=== PATIENT | female | born 1980 | race Caucasian/White ===

== ENCOUNTER 2024-05-22 17:51 | Emergency (ER) | payer BC, SELFPAY ==
--- NOTE | 2024-05-22 19:55 | ED_ITS ---
Discharge Plan Disposition Patient Disposition: Home, Self-Care Condition: Good Prescriptions Prescriptions: New ibuprofen [IBU] 800 mg tablet 800 mg PO Q8HP PRN (Reason: Moderate Pain) Qty: 30 0RF amoxicillin-pot clavulanate 875-125 mg Tablet 1 tab PO Q12H Qty: 20 0RF Referrals Follow up/Referrals: Yvon Esposito [Primary Care Provider] - See instructions Activity Restrictions/Add. Instructions Additional Instructions/Restrictions: Drink plenty of fluids. Take tylenol or ibuprofen for pain or fever. Take the medications as directed. Follow up with your regular doctor. GO TO THE ER FOR ANY WORSENING SYMPTOMS You have to follow up with a dentist. Clinical Impressions Clinical Impression: Dental abscess, Pain, dental Instructions Patient Instructions: Tooth Abscess, DI for Tooth Abscess, Ceftriaxone Injection Print Language Print Language: Japanese Discharge ED Provider: Eyad Prado [facility] General Stated complaint: dental pain Time Seen by Provider: 05/22/24 19:55 Related Data Previous Rx's ?Medication ?Instructions ?Recorded amoxicillin 875 mg-potassium 1 tab PO Q12H #20 tabs 05/22/24 clavulanate 125 mg tablet ibuprofen 800 mg tablet (IBU) 800 mg PO Q8HP PRN Moderate Pain 05/22/24 #30 tabs Allergies Allergy/AdvReac Type Severity Reaction Status Date / Time No Known Allergies Allergy Verified 05/22/24 20:19 [facility] Disclaimer: The information contained in this section may have been updated after the patient was seen, as this information can be updated by other users. Social History Smoking Status: Never smoker alcohol intake: never current occupational status: employed Travel in the last 8 weeks: None ROS Obtained: Yes All systems reviewed & no additional complaints except as documented Constitutional Constitutional: Denies chills and Denies fever(s) Eyes Eyes: Denies eye discharge ENT Ears, Nose, Mouth, and Throat: Denies dizziness, Denies otalgia and Denies sore throat Cardiovascular Cardiovascular: Denies chest pain Respiratory Respiratory: Denies shortness of breath, Denies chest congestion, Denies cough, Denies stridor and Denies wheezing Gastrointestinal Gastrointestingal: Denies nausea or vomiting Musculoskeletal Musculoskeletal: Reports system reviewed and no additional complaints, except as documented and Denies arthralgias Integumentary/Breasts Skin/Breast: Denies rash Neurologic Neurologic: Denies dizziness and Denies paresthesias Allergic/Immunologic Allergic/Immunologic: Denies wheezing Physical Exam General General appearance: alert and in no apparent distress Head Head exam: atraumatic, normocephalic and normal inspection Eye Eye exam: Present normal appearance, PERRL and EOMI ENT ENT exam: Present normal exam, normal oropharynx, mucous membranes moist, TM's normal bilaterally and normal external ear exam Neck Neck exam: Present normal inspection, full ROM and trachea midline; Absent meningismus or lymphadenopathy Chest Chest inspection: Present normal inspection and symmetric chest wall rise; Absent tenderness Respiratory Respiratory exam: Present normal lung sounds bilaterally; Absent respiratory distress Cardiovascular Cardiovascular exam: Present regular rate and normal rhythm; Absent JVD Abdominal Exam Abdominal exam: Present soft and normal bowel sounds; Absent distention, tenderness or guarding Extremities Exam Extremities exam: Present normal inspection, full ROM and normal capillary refill; Absent calf tenderness Back Exam Back exam: Present normal inspection; Absent tenderness Neurological Exam Neurological exam: Present alert and oriented X3 Psychiatric Psychiatric exam: Present normal affect and normal mood Skin Skin exam: Present warm, dry, intact and normal color Lymphatic Lymphatic Findings: no adenopathy Medical Decision Making Medical Records Medical records reviewed: No I reviewed the patient's medical records. Screening: Per USPSTF and CDC recommendations, given the prevalence of disease in our region, it is our hospital?s policy to screen for HIV and viral Hepatitis for all patients aged 18 and over and those with ongoing risk factors. Dong Inquiry Pt receiving controlled substance: No Lab Data Lab results reviewed: Yes I reviewed the patient's lab results.
[2024-05-22 20:07] VITALS: BP 144/72; PULSE 72; RESP 16; TEMP 36.7; O2SAT 100; BMI 35.4
[2024-05-22] MEDS: cefTRIAXone 1GM VIAL 1 GM IM (20:19)
[2024-05-22] MEDS: LIDOCAINE 1% 5ML PF VIAL IM (20:19)
[2024-05-22 20:41] VITALS: BP 144/72; PULSE 72; RESP 16; TEMP 36.7; O2SAT 100
== END 2024-05-22 20:42 | disposition home or self-care (01) ==
PROVIDERS: Emergency Provider Nurse Practitioner Family; PCP Family Medicine
DX: K04.7 Periapical abscess without sinus (principal)
CPT/HCPCS: 99212; G0381; J0696

== ENCOUNTER 2024-07-15 21:12 | Emergency (ER) | payer BC, SELFPAY ==
[2024-07-15 21:20] VITALS: BP 133/70; PULSE 69; RESP 14; O2SAT 98; BMI 35.2
--- NOTE | 2024-07-15 21:36 | PC.NURSE ---
Pt awake alert and oriented Skin pink warm and dry Resp full and easy Speech clear and appropriate
--- NOTE | 2024-07-15 21:42 | ED_ITS ---
<Statement entered by Mak Miner MD - 07/15/24 23:13> I was consulted by the REGINA, and we discussed the complexity of the problems being addressed. I approved the treatment and management plan for this patient's care in the emergency department, thus performing a substantive portion of the medical decision making. Mak Miner MD Discharge Plan Disposition Patient Disposition: Home, Self-Care Prescriptions Prescriptions: New clindamycin HCl 300 mg capsule 300 mg PO BID 7 Days Qty: 14 0RF ibuprofen 600 mg tablet 600 mg PO TID PRN (Reason: pain) Qty: 7 0RF No Action ibuprofen [IBU] 800 mg tablet 800 mg PO Q8HP PRN (Reason: Moderate Pain) Qty: 30 0RF amoxicillin-pot clavulanate 875-125 mg Tablet 1 tab PO Q12H Qty: 20 0RF Referrals Follow up/Referrals: Yvon Esposito [Primary Care Provider] - See instructions Activity Restrictions/Add. Instructions Additional Instructions/Restrictions: Today you were evaluated in the emergency department for dental pain. Please take the antibiotics and use ibuprofen as directed. Please follow-up with dentistry. Return to the ED for worsening of condition. Clinical Impressions Clinical Impression: Pain, dental Instructions Patient Instructions: DI for Dental Pain Print Language Print Language: Niuean Discharge ED Provider: Mak Miner General Adult HPI General Chief complaint: Dental/Oral Stated complaint: tooth ache infection in gums Time Seen by Provider: 07/15/24 21:41 Mode of Arrival: Ambulatory Source of Information: Patient Description of Symptoms (Recalled from ER Triage Doc. by RN): patient states she has had an infection in her teeth that began on right upper molars and now she has pain in her left upper teeth for 2 weeks and and wants antibiotics she states her dentist wont do anything and she just wants to treat the infection. 5/10 pain she reports taking tylenol and ibuprofen. History of Present Illness HPI narrative: patient is a 43-year-old female no significant PMH who presents to the ED for complaints of right-sided dental pain. Patient states that she has gum swelling and gum tenderness that started 3 days ago. Patient has a history of poor dental health and poor dental hygiene. Related Data Previous Rx's ?Medication ?Instructions ?Recorded amoxicillin 875 mg-potassium 1 tab PO Q12H #20 tabs 05/22/24 clavulanate 125 mg tablet ibuprofen 800 mg tablet (IBU) 800 mg PO Q8HP PRN Moderate Pain 05/22/24 #30 tabs clindamycin HCl 300 mg capsule 300 mg PO BID 7 days #14 caps 07/15/24 ibuprofen 600 mg tablet 600 mg PO TID PRN pain #7 tabs 07/15/24 Allergies Allergy/AdvReac Type Severity Reaction Status Date / Time No Known Allergies Allergy Verified 05/22/24 20:19 [facility] Disclaimer: The information contained in this section may have been updated after the patient was seen, as this information can be updated by other users. Social History (Updated 05/24/24 @ 16:08 by Eyad Prado APRN) Smoking Status: Current every day smoker alcohol intake: never current occupational status: employed Travel in the last 8 weeks: None Have you lived/traveled outside [place] in past 30 days?: No Contact w/someone who lives/traveled outside [place] past 30 days?: No Exposure to someone with infectious disease in past 14 days?: No Do you have a fever (greater than 100.4 F or 38 C)?: No Have you tested positive for COVID-19: No Exposed to someone with COVID-19 in past 14 days?: No Do you have a sore throat?: No Do you have a cough?: No Do you have any weakness?: No Do you have any diarrhea?: No Are you experiencing any unusual bleeding?: No Do you have any muscle aches/pain?: No Do you have any abdominal pain?: No Are you experiencing loss of taste or smell?: No ROS Obtained: Yes Systems reviewed as appropriate & no additional complaints except as documented Physical Exam General General appearance: alert and in no apparent distress Head Head exam: atraumatic and normocephalic Eye Eye exam: Present normal appearance and PERRL ENT ENT exam: Present normal exam and other (Poor dental hygiene, right lower gumline tenderness) Neck Neck exam: Present normal inspection Chest Chest inspection: Present normal inspection and symmetric chest wall rise; Absent tenderness Respiratory Respiratory exam: Present normal lung sounds bilaterally Cardiovascular Cardiovascular exam: Present regular rate Abdominal Exam Abdominal exam: Present soft and normal bowel sounds; Absent tenderness Extremities Exam Extremities exam: Present normal inspection and full ROM Back Exam Back exam: Present normal inspection and full ROM Neurological Exam Neurological exam: Present alert and oriented X3 Psychiatric Psychiatric exam: Present normal affect and normal mood Skin Skin exam: Present warm and dry Medical Decision Making Medical Records Screening: Per USPSTF and CDC recommendations, given the prevalence of disease in our region, it is our hospital?s policy to screen for HIV and viral Hepatitis for all patients aged 18 and over and those with ongoing risk factors. Dong Inquiry Pt receiving controlled substance: No Dong was queried for this patient: No Vital Signs: 07/15/24 21:20 Pulse Rate [Right] 69 Respiratory Rate 14 Blood Pressure [Right Arm] 133/70 Blood Pressure Mean [Right Arm] 91 Blood Pressure Source [Right Arm] Automatic Cuff Blood Pressure Position [Right Arm] Sitting 02 Sat by Pulse Oximetry 98 Oxygen Delivery Method Room Air Orders (Tests/Meds): ORDERS Category Date Time Status HIV Combo Routine Lab 07/15/24 21:38 Ordered Hepatitis C Ab Qual. W/ RFX Routine Lab 07/15/24 21:38 Ordered Medical Decision Narrative: In summary, patient is a 43-year-old female no significant PMH who presents to the ED for complaints of right-sided dental pain. Patient states that she has gum swelling and gum tenderness that started 3 days ago. Patient has a history of poor dental health and poor dental hygiene. Patient admits that she does not see a dentist as she has anxiety about going to the dentist office. She has not been on any recent antibiotics. She has had to have antibiotics for dental infections in the past. Denies fever, chills, body aches, headache, sore throat, difficulty swallowing, chest pain, shortness of breath, abdominal pain. Upon initial evaluation patient is alert, oriented and cooperative. She is hemodynamically stable. Physical exam remarkable for poor dental hygiene, gum tenderness around right molar area. Airway is patent. Discussed with patient that we can treat with clindamycin due to penicillin allergy and will send a prescription for ibuprofen to the pharmacy. Advised her she may also take [id number] acetaminophen as well. Patient declined tooth balls. Advised her that she will need to follow-up with dentistry. We discussed return precautions to the ED. Critical Care Critical Care Time Critical Care Time: No
[2024-07-15] MEDS: IBUPROFEN 600 MG TABLET PO (21:50)
[2024-07-15 21:51] VITALS: BP 130/70; PULSE 68; RESP 16; TEMP 36.8; O2SAT 98
[2024-07-15] MEDS: CLINDAMYCIN 150MG CAPSULE 300 MG PO (21:51)
== END 2024-07-15 21:52 | disposition home or self-care (01) ==
PROVIDERS: Emergency Provider Emergency Medicine; PCP Family Medicine
DX: K08.89 Other specified disorders of teeth and supporting structures (principal)
CPT/HCPCS: 99283

== ENCOUNTER 2025-02-11 19:07 | Emergency (ER) | payer BC, SELFPAY ==
[2025-02-11 19:28] VITALS: BP 124/71; PULSE 63; RESP 20; TEMP 36.7; O2SAT 98; BMI 38.6
--- NOTE | 2025-02-11 19:33 | PC.NURSE ---
Pt awake alert and oriented No obvious deformity in right wrist Radial pulses strong and equal Skin pink warm and dry Resp full and easy Speech clear and appropriate
--- OUTSIDE RECORDS SUMMARY | 2025-02-11 19:36 | XMS_ITS | Continuity of Care Document ---
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 [facility] Total Protein 7.9 6.4 - 8.3 gm/dL 10/12/2023 11:30 PM EDT [facility] Bili Total 0.3 0.2 - 1.3 mg/dL 10/12/2023 11:30 PM EDT [facility] ALT 9 <=41 U/L 10/12/2023 11:30 PM EDT [facility] AST 16 <=40 U/L 10/12/2023 11:30 PM EDT [facility] Alk Phos 100 36 - 123 U/L 10/12/2023 11:30 PM T [facility] eGFR (CKD-EPIcr 2020) 64 >=60 mL/min/1.7 3 m2 10/12/2023 11:30 PM T [facility] Comment:Estimated GFR was ca lculated using the CKD-EPIcr (2020) equation refit without race. The equation is recommended by the National Kidney Foundation - [place] [employer] of Nephrology Task Force. Blood VENOUS BLOOD / Unknown Venipuncture / Unknown 10/12/2023 11:14 PM EDT 10/12/2023 11:17 PM EDT us Margarito Howe MD CHEMISTRY ORDERABLES Final R esult [facility] [address] [place] [address] * EK EKG 12 LEAD (10/12/2023 11:05 PM EDT) Only the most recent of2 resultswithin the time period is included. Anatomical Region Laterality Modality Electrocardiogra phy 10/12/2023 11:0 8 PM EDT Impressions 10/14/2023 8:07 AM EDT [facility] Test Date: 2023-10-12 Pat Name: RACHANA YOUNG Department: DEPID Room: 11 Gender: Female Medical Interpreter: Ruddy : 1980 Requested By: [facility] Order Number: [id number] Reading MD: Avinash Sandhu Measurements Intervals [place] Rate: 84 P: 0 OR: 190 QRS: 58 QRSD: 90 T: 18 QT: 374 QTc: 443 Interpretive Statements POOR DATA QUALITY MAY AFFECT INTERPRETATION NORMAL SINUS RHYTHM Electronically Signed On 10-14-2023 08:07:45 EDT by Avinash Sandhu Narrative Procedure Note Avinash Sandhu MD - 10/14/2023 IMPRESSION [facility] Test Date: 2023-10-12 Pat Name: RACHANA YOUNG Department: DEPID Room: 11 Gender: Female Medical Interpreter: Ruddy : 1980 Requested By: [facility] Order Number: [id number] Reading : Avinash Snadhu Measurements Intervals [place] Rate: 84 P: 0 OR: 190 QRS: 58 QRSD: 90 T: 18 QT: 374 QTc: 443 Interpretive Statements POOR DATA QUALITY MAY AFFECT INTERPRETATION NORMAL SINUS RHYTHM Electronically Signed On 10-14-2023 08:07:45 EDT by Avinash Sandhu Margarito Howe MD IMG ECG ORDERABLES Final Res ult * HUMAN CHORIONIC GONADOTROPIN QUANTITATIVE (07/05/2023 11:46 AM EDT) Only the most recent of9 resultswithin the time period is included. Hcg Quant <1 <5 mIU/mL 07/05/2023 3:[address] [facility] Blood VENOUS BLOOD / Unknown Venipuncture / Unknown 07/05/2023 11:46 AM EDT 07/05/2023 11:46 AM EDT Narrative [facility], - 07/05/2023 3:23 PM EDT Ingestion of jayda doses of biotin (>5 mg/day) taken within 8 hours of drawing blood sample can interfere with this immunoassay test. Female (non-): 0-4.9 mIU/mL Female (postmenopausal): 0-8.1 mIU/mL Indeterminate values for (e.g., 5-25 mIU/mL) may be confirmed with a repeat test in 48-72 hours. Values in should double every 2-3 days for the first six weeks. [employer] CHEMISTRY ORDERABLES Final Resu lt Performing Organization Address [facility] de Phone Number [facility], [address] [place] [address] , [place] [address] * HEMOGLOBIN A1C (07/05/2023 11:46 AM EDT) Only the most recent of3 resultswithin the time period is included. Hgb A1C 5.6 4.2 - 5.6 % 07/05/2023 4:18 PM EDT [facility], Est. Avg Glucose 114 mg/dL 07/05/2023 4:18 PM EDT [facility], Blood VENOUS BLOOD / Unknown Venipuncture / Unknown 07/05/2023 11:46 AM EDT 07/05/2023 11:46 AM EDT Tristan [facility], - 07/05/2023 4:18 PM EDT REFERENCE RANGE: Normal: 4.0-5.6% Pre-diabetes: 5.7-6.4% Provisional diagnosis of diabetes: >6.4% Hgb F>10% and anything which shortens red cell survival, such as hemolytic anemia, or unstable hemoglobin variants such as HbSS, HbSC, or HbCC, will lower the HbA1c value associated with a given level of glycemic control. [employer] CHEMISTRY ORDERABLES Final Resu lt Performing Organization Address [facility] Co de Phone Number [facility], [address] [place] [address] , [address] [place], [place] [id number] * POCT URINE TELCOR (07/05/2023 9:48 AM EDT) Preg Test, Ur Negative 07/05/2023 9:[address] [facility] Urine URINE SPECIMEN COLLECTION / Unknown 07/05/2023 9:48 AM EDT 07/05/2023 9:54 AM EDT us Yvon Vaibhav DO POINT OF CARE TEST ORDERABLES F inal Result [address] [address] * CT ANGIOGRAM PULMONARY W CONTRAST (04/15/2023 2:01 PM EST) Anatomical Region Laterality Modality Chest Computed Tomogra phy 04/15/2023 2:01 PM EST Impressions 04/15/2023 2:11 PM EST No acute pulmonary embolism or other acute finding. - Note: Radiology results need to be interpreted within a comprehensive clinical context. If you have questions about the radiology report, please contact the office of the ordering clinician. Narrative 04/15/2023 2:[address] PULMONARY ANGIOGRAM, 04/15/2023 2:01 PM CLINICAL HISTORY: -Chest Pain. COMPARISON: None. TECHNIQUE: PE protocol CT angiogram of the chest using Isovue 370 IV contrast as recorded in EPIC. 2-D multiplanar reconstructions and 3-D MIP reconstructions reviewed. Dose 1 : CT DLP Total : 314.6 mGycm DLP Spiral Max : 294.7 mGycm Maximum CTDI Vol : 54.3 mGy SSDE : 66.789 mGy SSDE Diameter : 30 cm SSDE Source : [employer] FINDINGS: No acute pulmonary embolism. No aortic aneurysm. No pneumonia, pneumothorax, or effusion. No suspicious pulmonary nodule or mediastinal mass lesion. Coronary artery calcification: Mild. Procedure Note Mak Harvey III, MD - 04/15/2023 CT PULMONARY ANGIOGRAM, 04/15/2023 2:01 PM CLINICAL HISTORY: -Chest Pain. COMPARISON: None. TECHNIQUE: PE protocol CT angiogram of the chest using Isovue 370 IVcontrast as recorded in EPIC. 2-D multiplanar reconstructions and 3-D MIP reconstructions reviewed. Dose 1 : CT DLP Total : 314.6 mGycm DLP Spiral Max : 294.7 mGycm Maximum CTDI Vol : 54.3 mGy SSDE : 66.789 mGy SSDE Diameter : 30 cm SSDE Source : [employer] FINDINGS: No acute pulmonary embolism. No aortic aneurysm. No pneumonia, pneumothorax, or effusion. No suspicious pulmonary nodule or mediastinal mass lesion. Coronary artery calcification: Mild. IMPRESSION: No acute pulmonary embolism or other acute finding. - Note: Radiology results need to be interpreted within a comprehensiveclinical context. If you have questions about the radiology report, please contactthe office of the ordering clinician. us Vinay Cotton MD IMG CT ORDERABLES Final Result * TROPONIN-T HIGH SENSITIVITY 2HR (04/15/2023 1:45 PM EST) nq-fDmhyxcoq-J 2HR 7 <14 ng/L 04/15/2023 2:13 PM EST [facility] Comment:See the website maria victoria [employer]andem for rule out [place] care pathway, conditions other than AMI that can cause elevated hs cTnT, and comparison of values from the 4th and 5th generation West tests. https://askmayoexpert.[facility].org/topic/clinical-answers/gnt-13967223/cpm-203 70438 hs-cTnT 2Hr Delta from Baseline >1 <4 ng/L 04/15/2023 2:13 PM EST [facility] Blood VENOUS BLOOD / Unknown Venipuncture / Unknown 04/15/2023 1:45 PM EST 04/15/2023 1:59 PM EST Narrative [facility] - 04/15/2023 2:13 PM EST Ingestion of jayda doses of biotin (>5 mg/day) taken within 8 hours of drawing blood sample can interfere with this immunoassay test. us Vinay Cotton MD CHEMISTRY ORDERABLES Final Resu lt [facility] [address] [place] [address] * LIPASE LEVEL (04/15/2023 1:30 PM EST) Pathologist [facility] Lipase Lvl 28 13 - 60 U/L 04/15/2023 1:42 PM EST [facility] Blood VENOUS BLOOD / Unknown Venipuncture / Unknown 04/15/2023 1:30 PM EST 04/15/2023 1:30 PM EST us Vinay Cotton MD CHEMISTRY ORDERABLES Final Resu lt Performing Organization Address [facility] de Phone Number [facility] [address] [place] [address] * HEPATIC FUNCTION PANEL (04/15/2023 1:30 PM EST) Only the most recent of4 resultswithin the time period is included. Pathologist [facility] Total Protein 7.2 6.4 - 8.3 gm/dL 04/15/2023 1:42 PM EST [facility] Albumin 4.2 3.5 - 5.2 gm/dL 04/15/2023 1:42 PM EST [facility] Bili Direct <0.2 0.0 - 0.3 mg/dL 04/15/2023 1:42 PM EST [facility] Bili Total 0.3 0.2 - 1.3 mg/dL 04/15/2023 1:42 PM EST [facility] AST 15 <=40 U/L 04/15/2023 1:42 PM EST [facility] ALT 10 <=41 U/L 04/15/2023 1:42 PM EST [facility] Alk Phos 103 36 - 123 U/L 04/15/2023 1:42 PM EST [facility] Blood VENOUS BLOOD / Unknown Venipuncture / Unknown 04/15/2023 1:30 PM EST 04/15/2023 1:30 PM EST us Vinay Cotton MD CHEMISTRY ORDERABLES Final Resu lt Performing Organization Address [facility]/ZIP Co de Phone Number [facility] [address] [place] [address] * (ABNORMAL) BASIC METABOLIC PANEL (04/15/2023 11:53 AM EST) Only the most recent of6 resultswithin the time period is included. Sodium 136 136 - 145 mmol/L 04/15/2023 12:17 PM [facility] Potassium 4.0 3.5 - 5.0 mmol/L 04/15/2023 12:17 PM [facility] Chloride 102 98 - 107 mmol/L 04/15/2023 12:17 PM [facility] Total CO2 21(L) 22 - 29 mmol/L 04/15/2023 12:17 PM [facility] Anion Gap 13 7 - 16 mmol/L 04/15/2023 12:17 PM [facility] Calcium 9.2 8.6 - 10.4 mg/dL 04/15/2023 12:17 PM [facility] Glucose Lvl 101(H) 74 - 100 mg/dL 04/15/2023 12:17 PM [facility] BUN 9 6 - 20 mg/dL 04/15/2023 12:17 PM [facility] Creatinine 0.69 0.51 - 1.30 mg/dL 04/15/2023 12:17 PM [facility] eGFR (CKD-EPIcr 2020) 111 >=60 mL/min/1.7 3 m2 04/15/2023 12:17 PM [facility] Comment:Estimated GFR was ca lculated using the CKD-EPIcr (2020) equation refit without race. The equation is recommended by the National Kidney Foundation - [place] Society of Nephrology Task Force. Blood VENOUS BLOOD / Unknown Venipuncture / Unknown 04/15/2023 11:53 AM EST 04/15/2023 12:04 PM EST us Vinay Cotton MD CHEMISTRY ORDERABLES Final Resu lt Performing Organization Address City/[facility]/ZIP Co de Phone Number [facility] [address] [place] [address] * ESTRADIOL LEVEL (12/24/2022 10:44 AM EDT) Estradiol Lvl 16 pg/mL 12/24/2022 4:[address] [facility] [employer] [facility] Blood VENOUS BLOOD / Unknown Venipuncture / Unknown 12/24/2022 10:44 AM EDT 12/24/2022 10:[address] [facility] [employer] [facility] - 12/24/2022 4:51 PM EDT Follicular phase 12.4 - 233 pg/mL Ovulation phase 41.0 - 398 pg/mL Luteal Phase 22.3 - 341 pg/mL Postmenopause 5 - 138 pg/mL Adult Males 11.3 - 43.2 pg/mL Due to risk of cross reactivity, Estradiol levels should not be monitored by immunoassay in patients being treated with Fulvestrant (Faslodex). Falsely increased results of Estradiol may occur. Ingestion of jayda doses of biotin (>5 mg/day) taken within 8 hours of drawing blood sample can interfere with this immunoassay test. Yvon Esposito DO CHEMISTRY ORDERABLES Final Resu lt [facility] [address] , [place] [address] * LUTEINIZING HORMONE (12/24/2022 10:44 AM EDT) LH 31.80 mIU/mL 12/24/2022 4:[address] [facility] [employer] [facility] Comment: Suggested Reference Ranges (mIU/mL) Females Follicular Phase 2.4 - 12.6 Ovulation Phase 14.0 - 95.6 Luteal Phase 1.0 - 11.4 Postmenopause 7.7 - 58.5 Males 1.7 - 8.6 Blood VENOUS BLOOD / Unknown Venipuncture / Unknown 12/24/2022 10:44 AM EDT 12/24/2022 10:[address] [facility] [employer] [facility] - 12/24/2022 4:51 PM EDT Ingestion of jayda doses of biotin (>5 mg/day) taken within 8 hours of drawing blood sample can interfere with this immunoassay test. Yvonmin Esposito [employer] CHEMISTRY ORDERABLES Final Resu lt Performing Organization Address City/[facility]/ZIP Co de Phone Number [facility] [employer] [address] , [place] [address] * FOLLICLE STIMULATING HORMONE LEVEL (12/24/2022 10:44 AM EDT) FSH 49.60 mIU/mL 12/24/2022 4:[address] [facility] [employer] Comment: Suggested Reference Range (mIU/mL) Females Follicular Phase 3.5 - 12.5 Ovulation Phase 4.7 - 21.5 Luteal Phase 1.7 - 7.7 Postmenopause 25.8 - 134.8 Males 1.5 - 12.4 Blood VENOUS BLOOD / Unknown Venipuncture / Unknown 12/24/2022 10:44 AM EDT 12/24/2022 10:[address] [facility] [employer] [facility] - 12/24/2022 4:51 PM EDT Ingestion of jayda doses of biotin (>5 mg/day) taken within 8 hours of drawing blood sample can interfere with this immunoassay test. Yvon Esposito [employer] CHEMISTRY ORDERABLES Final Resu Performing Organization Address [facility] Co de Phone Number [facility] [employer] [address] , [place] [address] * SCHOOL CUSTODIAN CYTOLOGY REQUEST (PAP ONLY) (12/24/2022 10:37 AM EDT) Only the most recent of2 resultswithin the time period is included. CASE REPORT Gynecologic Cytology Report Case: [id number] Authorizing Provider: Yvon Esposito DO Collected: 12/24/2022 1037 Ordering Location: [facility] Received: 12/24/2022 1037 First Screen: Aranza Brown, CT Rescreen: Marcello Strickland CT Specimen: LIQUID-BASED PAP - CERVICAL, Cervix 12/27/2022 7:35 AM EDT [facility] PAP FINAL DIAGNOSIS Unsatisfactory specimen. 12/27/2022 7:35 AM EDT [facility] at 0735 EDT MICROSCOPIC DESCRIPTION Microscopic examination is performed and the findings corroborate the diagnosis. 12/27/2022 7:35 AM EDT [facility] PAP SMEAR ADEQUACY Unsatisfactory for evaluation 12/27/2022 7:35 AM EDT [facility] SPECIMEN LIMITATIONS Scant cells/lubricant 12/27/2022 7:35 AM EDT [facility] EMBEDDED IMAGES 12/27/2022 7:35 AM EDT [facility] PAP DISCLAIMER This case was not successfully imaged due to technical reasons and was manually rescreened. Note: This specimen was reprocessed due to lubricant or other foreign material. The Pap Smear is a screening test that aids in the detection of cervical cancer and cancer precursors. Both false positive and false negative results can occur. The test should be used at regular intervals, and positive results should be confirmed before definitive therapy. Processed using the [employer] Correctional Officer Chief Automated cytology screening device ([employer]). 12/27/2022 7:35 AM EDT [facility] SYSTEM Thin Prep SPECIMEN FROM UTERINE CERVIX / Unknown 12/24/2022 10:37 AM EDT 12/24/2022 10:37 AM EDT Yvon Vaibhav DO CYTOLOGY ORDERABLES Final Resul t [facility] [address] [place] [address] * TRICHOMONAS VAGINALIS BY TMA (PAP PANEL) (12/24/2022 10:37 AM EDT) Trichomonas vaginalis by TMA Not Detected Not Detected 12/25/2022 2:05 PM EDT PREFERRED LAB [facility] [employer], V[employer] Thin Prep SPECIMEN FROM UTERINE CERVIX / Unknown 12/24/2022 10:37 AM EDT 12/24/2022 10:37 AM EDT Narrative PREFERRED [facility] [facility], [facility] - 12/25/2022 2:05 PM EDT Test methodology is pipe fitter marine mediated amplification (TMA) using the Aptima Trichomonas vaginalis assay from [employer]. A negative result does not completely rule out a Trichomonas vaginalis infection due to potential inhibitors or levels present below the limit of detection of this assay. Results are dependent on proper collection and transport of specimen. This test is indicated for medical purposes only and should not be used for legal or forensic purposes. The assay has been cleared by the FDA to test the following specimens from symptomatic or asymptomatic women: clinician-collected endocervical swabs, clinician-collected vaginal swabs, and specimens collected in PreservCyt solution. Testing on first-catch male and female urine is not FDA-approved by this methodology; performance characteristics of the assay on these sample types were determined by [facility]. Yvon Vaibhav DO MICROBIOLOGY - GENERAL ORDERABL ES Final Result [facility], [address] [facility] , [address] [place] [id number] * GC CHLAMYDIA THIN PREP (12/24/2022 10:37 AM EDT) Only the most recent of2 resultswithin the time period is included. Chlamydia trachomatis Not Detected Not Detected 12/25/2022 1:40 PM EDT [facility], Neisseria gonorrhoeae Not Detected Not Detected 12/25/2022 1:40 PM EDT [facility], Thin Prep SPECIMEN FROM UTERINE CERVIX / Unknown 12/24/2022 10:37 AM EDT 12/24/2022 10:37 AM EDT [facility], - 12/25/2022 1:40 PM EDT Testing methodology is pipe fitter marine mediated amplification (TMA) using the Aptima Combo 2 assay from [employer]. A negative result does not completely rule out a Chlamydia trachomatis or Neisseria gonorrhoeae infection due to potential inhibitors or levels present below the limit of detection by this assay. Results are dependent on proper collection and transport of specimen. This test is indicated for medical purposes only and should not be used for legal or forensic purposes. The performance characteristics of this assay were validated by the testing laboratory. This assay is FDA cleared to test the following specimens: clinician-collected endocervical, vaginal, male urethral swab specimens, rectal swabs, and throat/pharyngeal swabs; patient collected vaginal specimens within a clinic setting; Thin Prep Specimens in PreservCyt Solution; and first-stream, unpreserved male and female urine specimens. Detailed methodology is available upon request. Yvon Esposito DO MICROBIOLOGY - GENERAL ORDERABL ES Final Result [facility], 1 [facility], [place] [address] * XR ANKLE RIGHT AP LATERAL AND OBLIQUE (12/09/2022 6:10 PM EDT) Anatomical Region Laterality Modality Ankle Radiographic Alia ging 12/09/2022 6:10 PM EDT Impressions 12/09/2022 6:22 PM EDT Small ossific densities and bone fragments adjacent to lateral malleolus could be acute. - Note: Radiology results need to be interpreted within a comprehensive clinical context. If you have questions about the radiology report, please contact the office of the ordering clinician. Narrative 12/09/2022 6:22 PM EDT XR ANKLE RIGHT AP LATERAL AND OBLIQUE, 12/09/2022 6:10 PM CLINICAL HISTORY: -ANKLE PAIN COMPARISON: None. PROCEDURE COMMENTS: XR ANKLE RIGHT AP LATERAL AND OBLIQUE FINDINGS: There are small ossific densities in bone fragments adjacent to the lateral malleolus which could be acute. Overlying soft tissue swelling seen. Moderate degenerative changes are seen around ankle joint. Procedure Note Blayne Wray MD - 12/09/2022 XR ANKLE RIGHT AP LATERAL AND OBLIQUE, 12/09/2022 6:10 PM CLINICAL HISTORY: -ANKLE PAIN COMPARISON: None. PROCEDURE COMMENTS: XR ANKLE RIGHT AP LATERAL AND OBLIQUE FINDINGS: There are small ossific densities in bone fragments adjacent tothe lateral malleolus which could be acute. Overlying soft tissue swellingseen. Moderate degenerative changes are seen around ankle joint. IMPRESSION: Small ossific densities and bone fragments adjacent to lateral malleoluscould be acute. - Note: Radiology results need to be interpreted within a comprehensiveclinical context. If you have questions about the radiology report, please contactthe office of the ordering clinician. Sravan Brunner APRN IMG DIAGNOSTIC IMAGING ORDE RABLES Final Result * THYROID STIMULATING HORMONE (09/24/2022 10:35 AM EDT) TSH 1.140 0.270 - 4.200 mcIU/mL 09/24/2022 10:11 PM EDT [facility], Blood VENOUS BLOOD / Unknown Venipuncture / Unknown 09/24/2022 10:35 AM EDT 09/24/2022 10:35 AM EDT Narrative [facility], - 09/24/2022 10:11 PM EDT Ingestion of jayda doses of biotin (>5 mg/day) taken within 8 hours of drawing blood sample can interfere with this immunoassay test. [facility] [address] CHEMISTRY ORDERABLES Final Formerly [facility], [facility] Performing Organization Address [facility] de Phone Number [facility] [employer] [address] , [place] [address] * T4, FREE (THYROXINE) (09/24/2022 10:35 AM EDT) Only the most recent of3 resultswithin the time period is included. Pathologist [facility] Free T4 1.01 0.80 - 1.80 ng/dL 09/24/2022 10:11 PM EDT [facility], Blood VENOUS BLOOD / Unknown Venipuncture / Unknown 09/24/2022 10:35 AM EDT 09/24/2022 10:35 AM EDT [facility], - 09/24/2022 10:11 PM EDT Ingestion of jayda doses of biotin (>5 mg/day) taken within 8 hours of drawing blood sample can interfere with this immunoassay test. [facility] [address] CHEMISTRY ORDERABLES Final [facility] Performing Organization Address [facility] Co de Phone Number [facility] [employer] [address] , [place] [address] * (ABNORMAL) LIPID SCREEN (09/24/2022 10:35 AM EDT) Only the most recent of3 resultswithin the time period is included. Cholesterol 219(H) <200 mg/dL 09/24/2022 10:11 PM EDT PREFERRED LAB [facility] Comment: < 200 Desirable 200 - 239 Borderline High >= 240 High Triglyceride 119 <150 mg/dL 09/24/2022 10:11 PM EDT PREFERRED [facility] Comment: < 150 Normal 150 - 199 Borderline High 200 - 499 High >= 500 Very High HDL 36(L) >=40 mg/dL 09/24/2022 10:11 PM EDT [facility], Comment: > 60 Optimal 40 - 60 Acceptable < 40 Low LDL Calculated 161(H) <100 mg/dL 09/24/2022 10:11 PM EDT [facility], Comment: < 100 Optimal 100 - 129 Near or above optimal 130 - 159 Borderline High 160 - 189 High >= 190 Very High Non-HDL-C Calculated 183(H) <=129 mg/dL 09/24/2022 10:11 PM EDT [facility], Comment: <130 Desirable 130-159 Above Desirable 160-189 Borderline High 190-219 High >= 220 Very High Fasting Specimen? 023 10:11 PM EDT PREFERRED [facility] Blood VENOUS BLOOD / Unknown Venipuncture / Unknown 09/24/2022 10:35 AM EDT 09/24/2022 10:35 AM EDT [facility] DO CHEMISTRY ORDERABLES Final Resu lt PREFERRED [facility] [address] [facility] , [place] [address] * XR CHEST PA AND LATERAL (09/07/2022 9:38 PM EDT) Anatomical Region Laterality Modality Chest Radiographic Alia ging 09/07/2022 9:38 PM EDT Impressions 09/07/2022 9:42 PM EDT No acute finding. - Note: Radiology results need to be interpreted within a comprehensive clinical context. If you have questions about the radiology report, please contact the office of the ordering clinician. Narrative 09/07/2022 9:42 PM EDT PA AND LATERAL CHEST X-RAY, 09/07/2022 9:38 PM CLINICAL HISTORY: -SHORTNESS OF BREATH COMPARISON: None. PROCEDURE COMMENTS: Frontal and lateral views of the chest. FINDINGS: The lungs are clear with no airspace consolidation, pneumothorax, or pleural effusion. The heart is normal in size. Procedure Note Johan Beckwith MD - 09/07/2022 PA AND LATERAL CHEST X-RAY, 09/07/2022 9:38 PM CLINICAL HISTORY: -SHORTNESS OF BREATH COMPARISON: None. PROCEDURE COMMENTS: Frontal and lateral views of the chest. FINDINGS: The lungs are clear with no airspace consolidation, pneumothorax, orpleural effusion. The heart is normal in size. IMPRESSION: No acute finding. - Note: Radiology results need to be interpreted within a comprehensiveclinical context. If you have questions about the radiology report, please contactthe office of the ordering clinician. us Lidia Faulkner MD IMG DIAGNOSTIC IMAGING ORDERAB LES Final Result * CORONAVIRUS 2019 (09/07/2022 9:20 PM EDT) [facility] CORONAVIRUS [id number] Not Detected Not Detected 09/07/2022 9:43 PM EDT [facility] Comment: This test is a real-time RT-PCR test intended for the qualitative detection of nucleic acid from the SARS-CoV-2 in upper respiratory samples collected from individuals suspected of COVID-19. Not Detected results do not preclude COVID-19 or other respiratory viruses and should not be used as the sole basis for treatment or other patient management decisions. MARLI Fact Sheet for Providers and Patients: MARLI Fact Sheet for Providers: https://www.fda.gov/media/473625/download MARLI Fact Sheet for Patients: https://www.fda.gov/media/844949/download Test is performed on the [employer] MARLI platform under the FDA's Emergency Use Authorization (EUA). Performed at [facility] [address] [place] [address] [place] [id number] Swab BOTH ANTERIOR NARES / Unknown 09/07/2022 9:20 PM EDT 09/07/2022 9:22 PM EDT us Lidia Faulkner MD MICROBIOLOGY - GENERAL ORDERAB LES Final Result Performing Organization Address City/[facility]/ZIP Co de Phone Number [facility] [address] [place] [address] * XR FINGER LEFT MINIMUM 2 VW (09/15/2020 9:07 AM EDT) Only the most recent of3 resultswithin the time period is included. Narrative Rajatuser, Andrew - 09/15/2020 9:07 AM EDT Please see physician's note from office encounter for x-ray imaging result Graham Hickman MD IMG DIAGNOSTIC IMAGING O RDERABLES Final Result * Disloc Upper Ext (09/03/2020 5:32 PM EDT) Narrative [facility] - 09/03/2020 5:32 PM EDT Zee Figueroa APRN 09/03/2020 8:10 PM Disloc Upper Ext Date/Time: 09/03/2020 8:07 PM Performed by: Zee Figueroa APRN Authorized by: Zee Figueroa APRN Consent: Consent obtained: Verbal Consent given by: Patient Location: Location: Finger Finger location: L little finger Finger dislocation type: PIP Pre-procedure assessment: Pre-procedure imaging: X-ray Imaging findings: dislocation present and fracture present Distal perfusion: normal Anesthesia (see MAR for exact dosages): Anesthesia method: Nerve block Block needle gauge: 30 G Block anesthetic: Bupivacaine 0.5% w/o epi Block injection procedure: Anatomic landmarks identified Procedure details: Manipulation performed: yes Finger reduction method: Direct traction Reduction successful: yes Reduction confirmed with imaging: no Immobilization: Splint Splint type: Static finger Supplies used: Aluminum splint Post-procedure assessment: Neurological function: normal Distal perfusion: normal Range of motion: improved Patient tolerance of procedure: Tolerated well, no immediate complications Zee Figueroa APRN PROCEDURE/MINOR SURGICAL ORD ERABLES Final Result [facility] [address] [place], [place] [id number] * Digital Block (09/03/2020 5:32 PM EDT) Narrative [facility] - 09/03/2020 5:32 PM EDT Zee Figueroa APRN 09/03/2020 8:10 PM Digital Block Date/Time: 09/03/2020 8:07 PM Performed by: Zee Figueroa APRN Authorized by: Zee Figueroa APRN Consent: Consent obtained: Verbal Consent given by: Patient Indications: Indications: Procedural anesthesia Location: Block location: Finger Finger blocked: L little finger Pre-procedure details: Skin preparation: Alcohol Procedure details (see MAR for exact dosages): Needle gauge: 30 G Anesthetic injected: Bupivacaine 0.5% w/o epi Technique: Three-sided block Injection procedure: Anatomic landmarks identified Post-procedure details: Outcome: Anesthesia achieved Patient tolerance of procedure: Tolerated well, no immediate complications us Zee Figueroa APRN PROCEDURE/MINOR SURGICAL ORD ERABLES Final Result [facility] [address] [place] [address] * SCANNED RHYTHM STRIPS (10/02/2019 9:13 PM EDT) Only the most recent of3 resultswithin the time period is included. Anatomical Region Laterality Modality Other 10/02/2019 9:13 PM EDT us Unknown Unknown IMG ECG ORDERABLES Final Result * INTRAOP AIRWAY PLACEMENT (10/02/2019 8:44 AM EDT) Narrative [facility] - 10/02/2019 8:44 AM EDT Grace Christian CRNA 10/02/2019 8:45 AM Intraop Airway Placement: Induction type: IV and Rapid sequence Pre-Oxygenation: Standard Mask ventilation: Not attempted Laryngoscope blade: Portillo Blade size: 3 Grade view: I Airway type: ETT- cuffed Topical Anesthetic/Lubricant: Lidocaine 2% jelly Intubation assist devices: Stylet 14fr Airway location: Oral Device size: 7.5mm Secured at: 20 cm Secured by: Tape Measured from: Lips Placement verified: Auscultation, End tidal CO2 and Symmetric chest wall motion Condition: Atraumatic Insertion attempts: 1 Title: DATA ENTRY EMAIL PROCESSOR us Frank Anne MD OR ANESTHESIA Final Res ult Performing Organization Address [facility] Co de Phone Number [facility] [address] [place] [address] * Peripheral Block by Anesthesia (10/02/2019 8:13 AM EDT) Narrative [facility] - 10/02/2019 8:13 AM EDT Ed Thomas DO 10/02/2019 8:14 AM Peripheral Block by Anesthesia Procedure Date/Time: 10/02/2019 8:13 AM Patient location during procedure: pre-op Reason for block: post-op pain management Staff and Pre-procedure checks Anesthesiologist: Ed Thomas DO Performed: anesthesiologist Preanesthetic Checklist: Allergies confirmed, Block plan confirmed, Necessary block equipment present, Supplemental O2 applied, if needed, Anticoagulant confirmed, Block site marked, Patient identified- 2 criteria, Surgical procedure consent verified, Aseptic technique used, Drug/solution labeled, Resuscitaion equipment available, MAGUE recommended monitors applied, IV access functioning and Sedation given, if needed Immediate perianesthetic assessment completed: Yes Patient position: Prep: Chloraprep Monitoring: BP, EKG, O2 Sat and Mental status assessed Peripheral Block Block type: Sciatic Nerve Block and Popliteal region Laterality: Right Medication: 35ml, Bupivacaine 0.5% Needle Needle type: Stimuplex Needle length: 4 in (100mm) Nerve localization: ultrasound guidance (Popliteal Block: Biceps Femoris muscle (long head), Vastus Lateralis muscle, Sciatic nerve (Tibia and Common Peroneal nerves), Popliteal artery are identified; the tip of the needle and the spread of the local anesthetic around the Tibial and Common Peroneal nerves are visualized.) Assessment Block success: complete Events: Uneventful Heart rate change: noParesthesia pain: absent Resistance on injection: normal Intermittent incremental injection LA at 5ml LA surrounding nerve by ultrasonographc visualization us Ed Thomas DO ANESTHESIA ORDERABLES Final Resu lt Performing Organization Address [facility] Co de Phone Number [facility] [address] [place] [address] * Peripheral Block by Anesthesia (10/02/2019 8:11 AM EDT) Narrative [facility] - 10/02/2019 8:11 AM EDT Ed Thomas DO 10/02/2019 8:13 AM Peripheral Block by Anesthesia Procedure Date/Time: 10/02/2019 8:11 AM Patient location during procedure: pre-op Reason for block: post-op pain management Staff and Pre-procedure checks Anesthesiologist: Ed Thomas DO Performed: anesthesiologist Preanesthetic Checklist: Allergies confirmed, Block plan confirmed, Necessary block equipment present, Supplemental O2 applied, if needed, Anticoagulant confirmed, Block site marked, Patient identified- 2 criteria, Surgical procedure consent verified, Aseptic technique used, Drug/solution labeled, Resuscitaion equipment available, MAGUE recommended monitors applied, IV access functioning and Sedation given, if needed Immediate perianesthetic assessment completed: Yes Patient position: Prep: Chloraprep Monitoring: BP, EKG, O2 Sat and Mental status assessed Peripheral Block Block type: Adductor Canal Block Laterality: Right Injection technique: single-shot Medication: 10ml, Bupivacaine 0.5% Needle Needle type: Stimuplex Needle length: 4 in (100mm) Nerve localization: ultrasound guidance (Adductor Canal block- Sartorius and Vastus Medialis muscle, Femoral artery and Saphenous nerve are identified; the tip of the needle and spread of the local anesthetic around the Saphenous nerve are visualized.) Assessment Block success: complete Events: Uneventful Heart rate change: no Blood aspirated: no Paresthesia pain: present- transient Resistance on injection: normal Intermittent incremental injection LA at 5ml LA surrounding nerve by ultrasonographc visualization us Ed Thomas DO ANESTHESIA ORDERABLES Final Resu lt Performing Organization Address [facility] [place] [address] * POCT URINE (10/02/2019 7:25 AM EDT) Only the most recent of7 resultswithin the time period is included. Preg Test, Ur negative POS/NEG [facility] Lot Number [id number] [facility] Expiration Date 2020-12-13 [facility] SeriAl # [facility] Control Line Yes YES/NO [facility] 10/02/2019 7:25 AM EDT Heather Mendoza AUTOMOTIVE INTERNET SALES MANAGER POINT OF CARE TEST O RDERABLES Final Result Performing Organization Address [facility]/State/ZIP Co de Phone Number [facility] [address] [place] [address] * CORONAVIRUS 2019 (COVID-19) - REF LAB (09/28/2019 2:06 PM EDT) CORONAVIRUS [id number] NON-DETEC SHRUTHI NON-DETEC SHRUTHI 09/29/2019 8:51 PM EDT [facility] Comment: A Non-Detected result does not preclude the possibility of 2019-nCoV infection since the adequacy of sample collection and/or low viral burden may result in the presence of viral nucleic acids below the analytical sensitivity of this test method. Test results should be used with caution and in conjunction with other clinical and laboratory data in making a diagnosis. Swab NASOPHARYNGEAL STRUCTURE / Unknown 09/28/2019 2:06 PM EDT 09/28/2019 2:07 PM EDT Narrative [facility] - 09/29/2019 8:51 PM EDT The SARS-CoV-2 assay is a real-time RT-PCR test intended for the qualitative detection of nucleic acid from the SARS-CoV-2 in respiratory specimens from individuals. Testing is limited to the guidelines of FDA Emergency Use Authorization FDA for performing SARS-CoV-2 testing. All testing is considered laboratory developed and performance characteristics are determined by [facility]. It has not been cleared nor approved by the FDA. The laboratory is accredited through CLIA and deemed qualified to perform high-complexity testing. Such testing is used for clinical purposes and should not be regarded as investigational or for research. [employer] Pat ID: [id number]; [employer] Req Num: [id number]; [employer] Spec ID: [id number] Johan Asif MD LAB SEND OUT ORDERABLES F inal Result [facility] [address] [place] [address], [facility] [phone] * TSH REFLEX (09/02/2019 12:43 PM EDT) Only the most recent of3 resultswithin the time period is included. TSH Reflex 2.390 0.270 - 4.200 mcIU/mL 09/02/2019 5:14 PM EDT [facility] Blood Venipuncture / Unknown 09/02/2019 12:43 PM EDT 09/02/2019 12:[address] [facility] - 09/02/2019 5:14 PM EDT Ingestion of jayda doses of biotin (>5 mg/day) taken within 8 hours of drawing blood sample can interfere with this immunoassay test. Raven Marrufo AUTOMOTIVE INTERNET SALES MANAGER CHEMISTRY ORDERABLES Final Resu lt [facility], [address] [facility] , [place] [address] * XR FOOT LEFT AP LATERAL AND OBLIQUE (10/11/2018 4:17 PM EDT) Anatomical Region Laterality Modality Foot Radiographic Alia ging 10/11/2018 4:17 PM EDT Impressions 10/11/2018 4:22 PM EDT No acute bony abnormality of the foot. - - Narrative 10/11/2018 4:22 PM EDT XR FOOT LEFT AP LATERAL AND OBLIQUE, 10/11/2018 4:17 PM CLINICAL HISTORY: -LEG PAIN COMPARISON: None. PROCEDURE COMMENTS: Routine views. FINDINGS: There is no fracture or traumatic malalignment. Small anterior osteophytes at the tibiotalar articulation without significant joint space narrowing. Tiny plantar heel spur. Procedure Note Vance Ty MD - 10/11/2018 XR FOOT LEFT AP LATERAL AND OBLIQUE, 10/11/2018 4:17 PM CLINICAL HISTORY: -LEG PAIN COMPARISON: None. PROCEDURE COMMENTS: Routine views. FINDINGS: There is no fracture or traumatic malalignment. Small anterior osteophytes at the tibiotalar articulation withoutsignificant joint space narrowing. Tiny plantar heel spur. IMPRESSION: No acute bony abnormality of the foot. - - Lolly Crane AUTOMOTIVE INTERNET SALES MANAGER IMG DIAGNOSTIC IMAGING ORDER OSCAR Final Result * PATHOLOGY TISSUE REQUEST (04/09/2018 11:58 AM EST) Only the most recent of2 resultswithin the time period is included. 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 - Margins free of high grade dysplasia. B) Endocervix, LEEP biopsy: - Fragment of benign endocervix with focal squamous metaplasia. - Negative for neoplasia. C) Endocervix, curettage: - Detached endocervical glands and inactive endometrium. - Negative for neoplasia. 04/10/2018 4:23 PM EST [facility] at 1623 EST GROSS DESCRIPTION Part A) Received in formalin in a container labeled with the patient's name, hospital number, and ectocervix is a 2.4 x 1.4 x 0.9 cm unoriented LEEP specimen partially surfaced by pink-red, erythematous ectocervix with a central 1 cm in diameter slitlike, patent cervical os. The endocervical margin is inked blue, and the stromal margin is inked black. The tissue is sectioned and entirely submitted in A1-A3. /EF Part B) Received in formalin in a container labeled with the patient's name, hospital number, and endocervix is a 2.3 x 0.9 x 0.9 cm crescent-shaped, unoriented portion of endocervix. The endocervical mucosa is pink-red, erythematous, with a herringbone appearance. No discrete lesions are identified. The tissue has a slight conical appearance with the convex aspect inked blue and the concave aspect inked black. The tissue is sectioned and entirely submitted in B1-B3. /EF Part C) Received in formalin in a container labeled with the patient's name, hospital number, and endocervical curettings is a 1.2 x 0.4 x 0.2 cm aggregate of pink-red, ragged soft tissue. Entirely submitted in C1. /EF 04/10/2018 4:23 PM EST [facility] MICROSCOPIC DESCRIPTION Microscopic examination is performed and the findings corroborate the diagnosis. 04/10/2018 4:23 PM EST [facility] EMBEDDED IMAGES 04/10/2018 4:23 PM EST [facility] Tissue SPECIMEN FROM UTERINE CERVIX / Unknown 04/09/2018 11:58 AM EST 04/09/2018 2:30 PM EST Comment:routine Tissue specimen (specimen) ENDOCERVICAL STRUCTURE / Unknown 04/09/2018 12:01 PM EST 04/09/2018 2:30 PM EST Comment:routine Tissue specimen (specimen) ENDOCERVICAL STRUCTURE / Unknown 04/09/2018 12:08 PM EST 04/09/2018 2:30 PM EST Comment:routine us Atilio Chisholm MD PATHOLOGY ORDERABLES Final Result Performing Organization Address [facility] [place] [address] * INTRAOP AIRWAY PLACEMENT (04/09/2018 11:52 AM EST) Narrative [facility] - 04/09/2018 11:52 AM EST Xavi Jeffrey CRNA 04/09/2018 11:53 AM Intraop Airway Placement: Induction type: IV Pre-Oxygenation: Standard Mask ventilation: Easy mask ventilation Airway type: LMA Device size: 3 Placement verified: End tidal CO2, Symmetric chest wall motion and Auscultation Condition: Atraumatic and Unchanged Insertion attempts: 1 Attempt 1 by: TH Title: DATA ENTRY EMAIL PROCESSOR Procedure Note Xavi Jeffrey - 04/09/2018 11:52 AM EST Intraop Airway Placement: Induction type: IV Pre-Oxygenation: Standard Mask ventilation: Easy mask ventilation Airway type: LMA Device size: 3 Placement verified: End tidal CO2, Symmetric chest wall motion andAuscultation Condition: Atraumatic and Unchanged Insertion attempts: 1 Attempt 1 by: TH Title: DATA ENTRY EMAIL PROCESSOR us Stuart Grande MD OR ANESTHESIA Final Resu lt Performing Organization Address [facility] Co de Phone Number [facility] [address] [place] [address] * STREP A DNA (04/08/2018 6:28 PM EST) Pathologist [facility] Strep A DNA Not Detected Not Detected 8 9:[address] [facility] [employer] [facility] Swab SPECIMEN FROM THROAT / Unknown 04/08/2018 6:28 PM EST 04/08/2018 6:24 PM EST Narrative [facility] [employer] - 04/09/2018 9:27 AM EST Test methodology by loop-mediated isothermal DNA amplification (LAMP). The performance characteristics of this test were validated by [facility]. A negative result does not rule out the presence of Group A Streptococcus DNA in concentrations below the level of detection of the assay. Lolly Crane APRN MICROBIOLOGY - GENERAL ORDER OSCAR Final Result [facility] [employer] [address] [facility] [place] [address] * STREP SCREEN (04/08/2018 6:28 PM EST) [facility] Strep Screen Not Detected Not Detected 04/08/20 18 6:41 PM EST [facility] Swab SPECIMEN FROM THROAT / Unknown 04/08/2018 6:28 PM EST 04/08/2018 6:24 PM EST Lolly Crane APRN MICROBIOLOGY - GENERAL ORDER OSCAR Final Result Performing Organization Address City/[facility]/ZIP Co de Phone Number [address] [address] * PDM PROFILE 3 W/O CONF, URINE-QUEST (09/05/2017 3:36 PM EDT) Only the most recent of2 resultswithin the time period is included. [facility] Creatinine, Urine 129.3 > or = 20.0 mg/dL [facility] UA pH 7.2 4.5 - 9.0 [facility] Oxidant NEGATIVE <200 mcg/mL [facility] Amphetamines NEGATIVE <500 ng/mL [facility] Benzodiazepines NEGATIVE <100 ng/mL [facility] Marijuana Metabolite NEGATIVE <20 ng/mL [facility] Cocaine Metabolite NEGATIVE <150 ng/mL [facility] Opiates NEGATIVE <100 ng/mL [facility] Oxycodone NEGATIVE <100 ng/mL [facility] Note: [employer] [facility] Comment: This drug testing is for medical treatment only. The results are presumptive; based only on screening methods, and they have not been confirmed by a second independent chemical method. Analysis was performed as non-forensic testing and these results should be used only by healthcare providers to render diagnosis or treatment, or to monitor progress of medical conditions. For assistance with interpreting these drug results, please contact a [facility] Toxic[facility] Specialist: [phone] ( ), M-F, 8am-6pm EST. 09/05/2017 3:36 PM EDT 09/05/2017 9:07 PM EDT Narrative Resulting Agency Comment Performing Organization Information: Site ID: [id number] Name: [facility] Address: [address] [place] [id number] Director: Margarito Hurley M.D. Raven Marrufo APRN [facility] ORDERABLE (NON-[facility]H) F inal Result [facility] [address] [place] [address] * TRICHOMONAS VAGINALIS BY TMA (09/05/2017 11:15 AM EDT) Pathologist [facility] Trichomonas vaginalis by TMA Not Detected Not Detected 09/06/2017 11:11 AM EDT [facility] Thin Prep 09/05/2017 11:1 5 AM EDT 09/05/2017 11:15 AM EDT Narrative [facility] - 09/06/2017 11:11 AM EDT Test methodology is pipe fitter marine mediated amplification (TMA) using the Aptima Trichomonas vaginalis assay from [employer]. A negative result does not completely rule out a Trichomonas vaginalis infection due to potential inhibitors or levels present below the limit of detection of this assay. Results are dependent on proper collection and transport of specimen. This test is indicated for medical purposes only and should not be used for legal or forensic purposes. The performance characteristics of this test were validated by [facility]. This assay is FDA cleared to test the following specimens: clinician-collected endocervical and vaginal swab specimens, and clinician collected gynecological specimens collected in PreservCyt Solution. Testing on first catch male and female urine is not FDA approved by this methodology, but has been developed and validated by the [facility]. Detailed methodology is available upon request. Raven Marrufo APRN MICROBIOLOGY - GENERAL ORDERABL ES Final Result Performing Organization Address [facility] Co de Phone Number [facility] [address] [place] [address] * HCG QUALITATIVE (01/10/2016 5:12 PM EDT) HCG QUAL Negative [facility] Blood specimen (specimen) 01/10/2016 5:12 PM EDT 01/10/2016 5:14 PM EDT Kathya Kebede MD CHEMISTRY ORDERABLES Edited Resu lt - Final Performing Organization Address [facility] de Phone Number [facility] [address] [place] [address] * WET PREP, GENITAL (01/10/2016 5:07 PM EDT) Only the most recent of2 resultswithin the time period is included. Final No Trichomonas seen Negative for yeast Clue cells seen [facility] Vaginal swab (specimen) 01/10/2016 5:07 PM EDT 01/10/2016 5:16 PM EDT Kathya Kebede MD MICROBIOLOGY - GENERAL ORDERABLE S Final Result Performing Organization Address [facility] Co de Phone Number [facility] [address] [place] [address] * CHLAMYDIA/GC BY TMA (01/10/2016 5:07 PM EDT) Chlamydia trachomatis Negative [facility] Neisseria gonorrhoeae Negative [facility] Comment: Testing methodology is pipe fitter marine mediated amplification (TMA) using the Aptima Combo 2 assay from [employer]. A negative result does not completely rule out a Chlamydia trachomatis or Neisseria gonorrhoeae infection due to potential inhibitors or levels present below the limit of detection by this assay. Results are dependent on proper collection and transport of specimen. This test is indicated for medical purposes only and should not be used for legal or forensic purposes. The performance characteristics of this test were validated by [facility]. This assay is FDA cleared to test the following specimens: clinician-collected endocervical, vaginal and male urethral swab specimens, patient collected vaginal specimens within a clinic setting, Thin Prep Specimens in PreservCyt Solution, and first-stream, unpreserved male urine specimens. Testing on female urine is not FDA approved by this methodology, but has been developed and validated by the [facility]. Detailed methodology is available upon request. Specimen from genital system (specimen) 01/10/2016 5:07 PM EDT 01/10/2016 7:07 PM EDT Kathya Kebede MD MICROBIOLOGY - GENERAL [place] [address] * SCHOOL CUSTODIAN CYTOLOGY REPORT (06/02/2015 8:41 PM EST) Only the most recent of2 resultswithin the time period is included. Waiter/Waitress Head Cytology Report PATIENT NAME:RACHANA YOUNG Waiter/Waitress Head Cytology Report Accession Number Collected Date/Time Received Date/Time [id number] 06/02/15 20:41 EST 06/03/15 08:10 EST GY Specimen Source Specimen Vag/Cerv/Endocx?: Cerv/Endocerv Statement of Adequacy Satisfactory for Evaluation. Transformation Zone Present. Diagnosis EPITHELIAL CELL ABNORMALITIES (LGSIL) Low Grade Squamous Intraepithelial Lesion, cannot exclude High Grade Squamous Epithelial Lesion. Comment Fungal organisms morphologically consistent with Paula species present. The Pap Smear is a screening test that aids in the detection of cervical cancer and cancer precursors. Both false positive and false negative results can occur. The test should be used at regular intervals, and positive results should be confirmed before definitive therapy. Processed using the ThinPrep Correctional Officer Chief automated cytology screening device ([employer]). Professor Of Fine Art: LEIGH ANN CANO 06/08/2015 Completed by: Nena Mora (Electronically signed by) 06/09/2015 [facility] 06/02/2015 8:41 PM EST Raven Marrufo APRN PATHOLOGY ORDERABLES Final Resu lt [facility] [address] [place] [address] * XR KNEE RIGHT AP LAT INT EXT OBLIQUES AND SUNRISE (06/09/2014 3:40 PM EST) Anatomical Region Laterality Modality Knee Radiographic Alia ging 06/09/2014 3:28 PM EST Impressions 06/09/2014 3:47 PM EST IMPRESSION: No acute fracture or dislocation. Narrative 06/09/2014 3:47 PM EST Right knee 5 views, 06/09/2014 HISTORY: Trauma, right knee pain Procedure Note Asher Sandoval MD - 06/09/2014 Right knee 5 views, 06/09/2014 HISTORY: Trauma, right knee pain IMPRESSION: No acute fracture or dislocation. Cesar Barron MD IMG DIAGNOSTIC IMAGING ORDERABL ES Final Result * DIFFERENTIAL (02/10/2014 9:25 AM EDT) Only the most recent of5 resultswithin the time period is included. Neut Percent 65.3 % [facility] Lymph Percent 26.2 % [facility] [place] Percent 4.8 % [facility] Eos Percent 2.5 % [facility] Baso Percent 1.2 % [facility] Neut# 5.6 1.8 - 7.7 x10(3)/mcL [facility] Lymph# 2.3 0.6 - 4.8 x10(3)/mcL [facility] [place]# 0.4 0.0 - 1.3 x10(3)/[facility] Eos# 0.2 0.0 - 0.5 x10(3)/[facility] LAB Baso# 0.1 0.0 - 0.2 x10(3)/[facility] Blood specimen (specimen) 02/10/2014 9:25 AM EDT 02/10/2014 9:43 AM EDT Xavi Farias MD HEMATOLOGY ORDERABLES Fin al Result Performing Organization Address City/[facility]/ZIP Co de Phone Number [facility] [address] [place] [address] * CBC WITH AUTO DIFF (02/10/2014 9:25 AM EDT) Only the most recent of5 resultswithin the time period is included. WBC 8.6 4.0 - 11.0 x10(3)/[facility] RBC 4.13 3.80 - 5.10 x10(6)/[facility] Hgb 12.0 12.0 - 15.6 gm/dL [facility] Hct 36.2 35.7 - 45.9 % [facility] MCV 87.8 82.5 - 99.8 fL [facility] MCH 29.2 27.0 - 34.3 pg [facility] MCHC 33.2 32.1 - 35.3 gm/dL [facility] RDW 14.7 11.5 - 15.0 % [facility] Platelet 266 144 - 423 x10(3)/[facility] LAB MPV 7.9 6.8 - 10.8 fL [facility] Blood specimen (specimen) 02/10/2014 9:25 AM EDT 02/10/2014 9:43 AM EDT Xavi Farias MD HEMATOLOGY ORDERABLES Fin al Result Performing Organization Address [facility]/ZIP Co de Phone Number [facility] [address] [place] [address] * SCANNED PRE/POST PROCEDURES (02/07/2014 11:04 PM EDT) Narrative Procedure Note Unknown, Unknown - 02/07/2014 11:04 PM EDT us Unknown Unknown PROCEDURE/MINOR SURGICAL ORDERAB LES Final Result * SCANNED ANESTHESIA FORMS (02/07/2014 11:04 PM EDT) Narrative Procedure Note Unknown, Unknown - 02/07/2014 11:04 PM EDT us Unknown Unknown PROCEDURE/MINOR SURGICAL ORDERAB LES Final Result * PATHOLOGY TISSUE REPORT (02/05/2014 3:04 PM EDT) Surgical Pathology Report PATIENT NAME:RACHANA YOUNG Surgical Pathology Report Accession Number Collected Date/Time Received Date/Time SP02/05/14 15:04 EDT 02/05/14 15:04 EDT Diagnosis Uterine contents: - Products of conception (immature chorionic villi). CHRISTIANA GLEZ (Electronically signed by) Verified: 02/08/2014 [facility] Lab Clinical Information Missed . Gross Description Received fresh in a suction device labeled with the patient's name and products of conception is a 4 x 3.5 x 1 cm aggregate of red-pink tissue fragments and blood. Villous tissue is identified. parts are not identified. Steel Manager tissue is submitted in one cassette. /BC MR /BR Microscopic Description Microscopic examination is performed and the findings corroborate the diagnosis. [facility] 02/05/2014 3:04 PM EDT Result [facility] Rachana Nguyen MD PATHOLOGY ORDERABLES Gabrielle steele Result [facility] [address] [place] [address] * ABORH (02/05/2014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
--- NOTE | 2025-02-11 19:53 | XR_ITS ---
PROCEDURE INFORMATION: Exam: XR Right Wrist Exam date and time: 02/11/2025 7:58 PM Age: 44 years old Clinical indication: Injury or trauma; Other: Lifting injury; Blunt trauma (contusions or hematomas); Wrist; Right TECHNIQUE: Imaging protocol: Radiologic exam of the right wrist. Views: 3 or more views. COMPARISON: No relevant prior studies available. FINDINGS: Bones/joints: No acute fracture. No dislocation. Soft tissues: Unremarkable. IMPRESSION: No fracture. If pain persists, suggest splinting and follow up radiographs in 7-10 days.
--- NOTE | 2025-02-11 19:53 | XR_ITS ---
PROCEDURE INFORMATION: Exam: XR Right Hand Exam date and time: 02/11/2025 7:56 PM Age: 44 years old Clinical indication: Injury or trauma; Other: Lifting injury; Blunt trauma (contusions or hematomas); Wrist; Right; Additional info: Tenderness TECHNIQUE: Imaging protocol: Radiologic exam of the right hand. Views: 3 or more views. COMPARISON: No relevant prior studies available. FINDINGS: Bones/joints: No acute fracture. No dislocation. Soft tissues: Unremarkable. IMPRESSION: No fracture. If pain persists, suggest splinting and follow up radiographs in 7-10 days.
--- NOTE | 2025-02-11 19:53 | XR_ITS ---
PROCEDURE INFORMATION: Exam: XR Right Forearm Exam date and time: 02/11/2025 7:59 PM Age: 44 years old Clinical indication: Injury or trauma; Other: Lifting injury; Blunt trauma (contusions or hematomas); Wrist; Right; Additional info: Tenderness TECHNIQUE: Imaging protocol: Radiologic exam of the right forearm. Views: 2 views. COMPARISON: No relevant prior studies available. FINDINGS: Bones/joints: No acute fracture. No dislocation. Soft tissues: Unremarkable. IMPRESSION: No fracture.
--- NOTE | 2025-02-11 19:54 | ED_ITS ---
Discharge Plan Disposition Patient Disposition: Home, Self-Care Condition: Good Prescriptions Prescriptions: No Action clindamycin HCl 300 mg capsule 300 mg PO BID 7 Days Qty: 14 0RF ibuprofen 600 mg tablet 600 mg PO TID PRN (Reason: pain) Qty: 7 0RF ibuprofen [IBU] 800 mg tablet 800 mg PO Q8HP PRN (Reason: Moderate Pain) Qty: 30 0RF amoxicillin-pot clavulanate 875-125 mg Tablet 1 tab PO Q12H Qty: 20 0RF Referrals Follow up/Referrals: Omi Salgado DO [Staff Physician, Orthopedics] - See instructions Yvon Esposito [Primary Care Provider, Medical] - See instructions Activity Restrictions/Add. Instructions Additional Instructions/Restrictions: Take Tylenol and ibuprofen as needed for pain control. Use the splint for comfort. If you continue to have pain in 1 week, call and schedule appointment with Dr. Salgado who is the orthopedic doctor. Otherwise use heat and ice as needed. Clinical Impressions Clinical Impression: Acute wrist pain Print Language Print Language: Maltese Discharge ED Provider: Rosemary Johnston General Adult HPI General Chief complaint: PAIN Stated complaint: AO 02-10 right wrist pain Time Seen by Provider: 02/11/25 19:22 Mode of Arrival: Ambulatory Source of Information: Patient Description of Symptoms (Recalled from ER Triage Doc. by RN): right wrist injury from lifting heavy box above head History of Present Illness HPI narrative: Patient is a 44-year-old female with no significant past medical history who presents to the emergency department with right wrist pain. Patient states that she was out work when she was lifting a heavy object when she felt a pop in her right wrist. Patient states that she has had some pain since that time. Patient does not have any medical problems, does not take any daily medications. Patient denies any numbness or weakness. Patient did not take anything prior to arrival for pain. Patient states that she only has mild pain with movement. Related Data Previous Rx's ?Medication ?Instructions ?Recorded amoxicillin 875 mg-potassium 1 tab PO Q12H #20 tabs clavulanate 125 mg tablet ibuprofen 800 mg tablet (IBU) 800 mg PO Q8HP PRN Moder ate Pain 05/22/24 #30 tabs clindamycin HCl 300 mg capsule 300 mg PO BID 7 days #1 4 caps 07/15/24 ibuprofen 600 mg tablet 600 mg PO TID PRN pain #7 ta bs 07/15/24 Allergies Allergy/AdvReac Type Severity Reaction Status Date / Time No Known Allergies Allergy Verified 05/22/24 20:19 [facility] Disclaimer: The information contained in this section may have been updated after the patient was seen, as this information can be updated by other users. Social History (Updated 05/24/24 @ 16:08 by Eyad Prado APRN) Smoking Status: Current every day smoker alcohol intake: never current occupational status: employed Travel in the last 8 weeks?: None Have you lived/traveled outside [place] in past 30 days?: No Contact w/someone who lives/traveled outside [place] past 30 days?: No Exposure to someone with infectious disease in past 14 days?: No Do you have a fever (greater than 100.4 F or 38 C)?: No Have you tested positive for COVID-19?: No Exposed to someone with COVID-19 in past 14 days?: No Do you have a sore throat?: No Do you have a cough?: No Do you have any weakness?: No Do you have any diarrhea?: No Are you experiencing any unusual bleeding?: No Do you have any muscle aches/pain?: No Do you have any abdominal pain?: No Are you experiencing loss of taste or smell?: No ROS Obtained: Yes All systems reviewed & no additional complaints except as documented and Yes Systems reviewed as appropriate & no additional complaints except as documented Physical Exam General General appearance: alert and in no apparent distress Head Head exam: atraumatic, normocephalic and normal inspection Eye Eye exam: Present normal appearance, PERRL and EOMI; Absent scleral icterus ENT ENT exam: Present normal exam and normal external ear exam Neck Neck exam: Present normal inspection and full ROM Chest Chest inspection: Present normal inspection and symmetric chest wall rise Respiratory Respiratory exam: Present normal lung sounds bilaterally; Absent respiratory distress or wheezes Cardiovascular Cardiovascular exam: Present regular rate, normal rhythm and normal heart sounds Abdominal Exam Abdominal exam: Present soft and distention; Absent tenderness, guarding or rebound Extremities Exam Extremities exam: Present normal inspection, full ROM and other (RUE with tenderness along the right wrist, and forearm, but FROM limited 2/2 pain) Back Exam Back exam: Present normal inspection and full ROM Neurological Exam Neurological exam: Present alert, oriented X3 and other (NVI in the RUE) Psychiatric Psychiatric exam: Present normal affect and normal mood Skin Skin exam: Present warm and dry Medical Decision Making Medical Records Medical records reviewed: Yes I reviewed the patient's medical records. Screening: Per USPSTF and CDC recommendations, given the prevalence of disease in our region, it is our hospital?s policy to screen for HIV and viral Hepatitis for all patients aged 18 and over and those with ongoing risk factors. Dong Inquiry Pt receiving controlled substance: No Vital Signs: 02/11/25 19:28 02/11/25 21:11 Temperature 98.0 F 98.2 F Temperature Source Oral Oral Pulse Rate 88 Pulse Rate [Left Radial] 63 Respiratory Rate 20 20 Blood Pressure 120/70 Blood Pressure [Right Arm] 124/71 Blood Pressure Mean [Right Arm] 88 Blood Pressure Source Automatic Cuff Blood Pressure Source [Right Arm] Automatic Cuff Blood Pressure Position Sitting Blood Pressure Position [Right Arm] Sitting 02 Sat by Pulse Oximetry 98 Oxygen Delivery Method Room Air Room Air Lab Data Lab results reviewed: Yes I reviewed the patient's lab results. Orders (Tests/Meds): ORDERS Category Date Time Status Forearm XR right 2 views [XR forearm RT 2V] Stat Exams 02/11/25 19:53 Completed Hand XR right minimum 3 views [XR hand RT min 3V] Stat Exams 02/11/25 19:53 Completed Wrist XR right minimum 3 views [XR wrist RT min 3V] Exams 02/11/25 19:53 Completed Stat Medical Decision Narrative: Patient is an otherwise healthy 44-year-old female who presented to the emergency department with right wrist pain. On arrival, patient was hemodynamically stable with unremarkable vital signs. Differential includes but not limited to: Fracture, dislocation, sprain, strain, amongst others. X-rays were obtained which were reviewed and interpreted by myself which showed no acute fracture. Patient was placed into a thumb spica splint given some continued pain. It was recommended that she take Tylenol and Motrin. And use the splint for comfort. Patient was advised to use heat and ice as needed. Patient was advised to follow-up with Dr. Salgado the orthopedic doctor if she had any continued pain. Patient was otherwise discharged home in stable condition return precautions were discussed. Critical Care Critical Care Time Critical Care Time: No
--- NOTE | 2025-02-11 20:11 | PC.NURSE ---
Pt aware waiting for xray results
--- NOTE | 2025-02-11 21:10 | PC.NURSE ---
Velcro thumb spica splint applied to right wrist
[2025-02-11 21:11] VITALS: BP 120/70; PULSE 88; RESP 20; TEMP 36.8; O2SAT 96
== END 2025-02-11 21:17 | disposition home or self-care (01) ==
PROVIDERS: Emergency Provider Student in an Organized Health Care Education/Training Program; PCP Family Medicine
DX: M25.531 Pain in right wrist (principal); X50.0XXA Overexertion from strenuous movement or load, initial encounter
CPT/HCPCS: 73090; 73110; 73130; 99282; 99283